=== PATIENT | male | born 1955 | race Caucasian/White ===

== ENCOUNTER 2021-07-05 08:54 | Inpatient (IN) | payer MEDICARE, BC ==
[2021-07-05] MEDS ORDERED: Sodium Chloride 0.9% 2.5 ML Syringe FLUSH PRN (09:38)
[2021-07-05] MEDS ORDERED: Sodium Chloride 0.9% 10 ML Syringe FLUSH PRN (09:38)
[2021-07-05 09:58] LABS: BLOOD UREA NITROGEN,BUN 5 mg/dL (7.0-18.0); CARBON DIOXIDE,CO2 25.1 mmol/L (21.0-32.0); CHLORIDE,CL 103 mmol/L (98-107); GLUCOSE RANDOM 117 mg/dL (74-106); POTASSIUM,K 3.8 mmol/L (3.5-5.1); SODIUM,NA 142 mmol/L (136-148)
--- NOTE | 2021-07-05 10:03 | EDM.PDOC ---
ED HPI GENERAL MEDICAL PROBLEM - General Chief Complaint: General Stated Complaint: PC SENT PT FOR POSSIBLE INTRUSION ON RIGHT LEG Time Seen by Provider: 07/05/21 09:18 Source of Information: Reports: Patient - History of Present Illness INITIAL COMMENTS - FREE TEXT/NARRATIVE: Patient presents with sending in from primary care doctor's clinic for concern of discoloration of toes. Patient was seen yesterday had an arterial duplex and laboratory testing and was sent in for evaluation. Patient states that he noticed the discoloration of his toes and pain about 4 days ago. Patient did have an arterial femorofemoral bypass [address] [facility] but he does not recall the name of the surgeon. Patient denies any fevers. Patient has chronic unchanged diarrhea. No recent antibiotics although he had Bactrim started just yesterday. No respiratory symptoms. He is vaccinated from [place]. No urinary symptoms. Primary care doctor noted that the patient had a white blood cell count elevation. Leg Pain Score (Numeric/FACES): 2 - Related Data Allergies Allergy/AdvReac Type Severity Reaction Status Date / Time meperidine HCl [From Demerol] Allergy Cannot Verified 07/05/21 09:19 Remember Penicillins Allergy Cannot Verified 07/05/21 09:19 Remember Home Meds: Home Meds Hydrocodone/Acetaminophen [HYDROcodone-Acetaminophen 5-325 MG] 07/05/21 [History] Sulfamethoxazole/Trimethoprim [Sulfamethoxazole-Tmp Ds Tablet] 07/05/21 [History] Terbinafine HCl [Terbinafine] 07/05/21 [History] Past Medical History - Past Health History Medical/Surgical History: Denies Medical/Surgical History Social & Family History - Tobacco Use Tobacco Use Status *Q: Unknown Ever Used Tobacco Second Hand Smoke Exposure: No - Caffeine Use Caffeine Use: Reports: None - Recreational Drug Use Recreational Drug Use: No ED ROS GENERAL - Review of Systems Review Of Systems: See Below Musculoskeletal: Reports: Other (Hit his right anterior leg about 1 month ago still has scab and pain to this area) ED EXAM, GENERAL - Physical Exam Exam: See Below Free Text/Narrative:: CONSTITUTIONAL: well appearing in no acute distress SKIN: Warm, dry, and intact without rash HENT: Normocephalic, atraumatic, PULMONARY: clear to ausculation bilaterally. No rales, rhonchi, wheezing CARDIOVASCULAR: regular rate, No murmur, rubs, or gallops GASTROINTESTINAL: soft, nondistended, nontender NEUROLOGIC: normal speech, II-XII intact. light touch/5/5 power equal and symmetric in upper and lower extremities without deficit MUSCULOSKELETAL: Patient with dark discoloration to bilateral great toes and also the fifth little toe. It is difficult to palpate any dorsalis pedis pulse. The extremities are warm and cap refill less than 2 seconds. Sensorimotor function otherwise intact. Patient does have tenderness to the discolored right great toe. In addition the right pretibial region has 2 scabs with some surrounding erythema. There is more tenderness to the proximal scab. PSYCHIATRIC: normal mood and affect #1 Interpretation Time: 10:02 EKG Interpretation Comments: 74, normal sinus rhythm. Mild interventricular conduction delay. Minor J-point elevation in V2 only Course - Vital Signs Text/Narrative:: Patient has records that were sent in from yesterday with white count of 11.77. There is an ultrasound that shows atherosclerotic plaque noted within the distal abdominal aorta. Patient has a femorofemoral bypass from right to left common femoral artery which appears patent. Elevated velocity seen within the right distal superficial femoral artery measuring up to 206 cm/s. Monophasic waveforms seen throughout the bilateral lower extremities. Otherwise there is no elevation of velocities noted throughout the bilateral lower extremities 11:28 still awaiting vascular surgery input. Have contacted [facility], [facility], [facility]. All have no beds. Still awaiting vascular surgery call back for [facility]. CT obtained. Extensive plaque disease. [facility] vascular surgeon was in the OR and went back in a case before I could talk to him but at this point given the CT scan findings I feel that the patient will very likely need vascular surgery consultation. In the interim the patient has already been anticoagulated. 1:55pm still calling trying different hospitals for beds. No one has beds. I have also tried L to [place] and [facility] and [facility]. [facility] "has bed"; bed will be 6 hours if accepted. Face sheet faxed and process started. 2:54 [facility] called again. no beds and no list for patient to be put on; [facility] still no bed. no list to be put on. 3:06. Spoke to [facility] at [facility]. Will review images. concurs with heparin. No bed to accept logistically but he is very willing, able and wanting to accept the patient. 3:15pm Called sister > no answer 3:18. [facility] called and a bed has opened up awaiting for images to get to [facility]. I have called mulitple times to see if they arrived. CT also called and they are pushing the images. 4:12pm. Vascular surgeon at [facility] contacted. States this is a long trip to get to [facility] and they may not even do a procedure. He states he is not saying no, however, he is hesitant to accept. 4:16pm calling back [facility], asking to speak to vascular surgery without images since pt will need to be in facility where vascular surgery is available (previously he said vascular surgery likes to see images first). However, since it is taking a long time with images he will connect me. 4:22pm [facility] (transfer center) states vascular surgery ([facility]) still requiring images prior to discussing. I expressed my concern for possible loss of bed. [facility] states he will relay that to vascular surgery. 5:15pm . Our CT states images sent. [facility] states that their IT states there is an intermediate windows server architect that is not allowing the images to cross. I asked if I could scroll video the images and send deidentified text with patient consent. States vascular now in an urgent surgery and not available to discuss. [facility] states they are holding the bed anticipating accepting the patient and he will continue to work with IT in regard to images and then [place] back with vascular surgery. 6:45. Spoke with vascular surgery, , at [facility]. He was to review the images. He states the grafts and in vessels are patent with good runoff. He acknowledges the clot burden in the infrarenal aorta. He states that he would not jump to any intervention immediately but would try anticoagulation. He recommends admission here with heparinization for a couple of days and then Eliquis as an outpatient. He states he is available to follow- up with the patient next week as needed. Patient will be admitted for systemic anticoagulation and serial checks. Symptoms did start approx 4 days ago and there has been no marked compensation here during his extended ED course. During inpatient admission patient could also be considered for echocardiography to ensure that there is no intracardiac clot burden. LATASHA Campbell 7pm Last Recorded V/S: Last Vital Signs Temp 36.8 C 07/05/21 09:16 Pulse 91 07/05/21 18:35 Resp 18 07/05/21 18:35 BP 151/85 H 07/05/21 18:35 Pulse Ox 96 07/05/21 18:35 - Orders/Labs/Meds Orders: Active Orders 24 hr Category Date Time Status Admission Status [Patient Status] [ADT] Stat ADT 07/05/21 18:48 Ordered Cardiac Monitoring [RC] . DIRECTED Care 07/05/21 09:38 Active Cardiac Monitoring [RC] . DIRECTED Care 07/05/21 18:48 Ordered CULTURE BLOOD [BC] Stat Lab 07/05/21 10:00 Received CULTURE BLOOD [BC] Stat Lab 07/05/21 10:10 Received aPTT [PTT,PARTIAL THROMBOPLSTIN TIME] [COAG] Q6H Lab 07/05/21 23:30 Ordered aPTT [PTT,PARTIAL THROMBOPLSTIN TIME] [COAG] Q6H Lab 07/06/21 05:30 Ordered aPTT [PTT,PARTIAL THROMBOPLSTIN TIME] [COAG] Q6H Lab 07/06/21 11:30 Ordered aPTT [PTT,PARTIAL THROMBOPLSTIN TIME] [COAG] Q6H Lab 07/06/21 17:30 Ordered aPTT [PTT,PARTIAL THROMBOPLSTIN TIME] [COAG] Q6H Lab 07/06/21 23:30 Ordered Heparin Sodium/0.45% NaCl [Heparin 25,000 Units in 1/2 Med 07/05/21 10:30 Active NS 500 ML] 500 ml IV TITRATE Sodium Chloride 0.9% [Saline Flush] Med 07/05/21 09:38 Active 10 ml FLUSH ASDIRECTED PRN Sodium Chloride 0.9% [Saline Flush] Med 07/05/21 09:38 Active 2.5 ml FLUSH ASDIRECTED PRN Blood Culture x2 Reflex Set [OM.PC] Stat Oth 07/05/21 09:39 Ordered Saline Lock Insert [OM.PC] Stat Oth 07/05/21 09:38 Ordered Medication Orders Heparin Sodium/Sodium Chloride (Heparin 25,000 Units In 1/2 Ns 500 Ml) 500 mls @ 26.127 mls/hr IV TITRATE MELISSA; Protocol Last Admin: 07/05/21 11:26 Dose: 18 units/kg/hr, 26.127 mls/hr Documented by: LINDSEY Cosigned by: WALLY Sodium Chloride (Sodium Chloride 0.9% 10 Ml Syringe) 10 ml FLUSH ASDIRECTED PRN PRN Reason: Keep Vein Open Last Admin: 07/05/21 11:25 Dose: 10 ml Documented by: LINDSEY Sodium Chloride (Sodium Chloride 0.9% 2.5 Ml Syringe) 2.5 ml FLUSH ASDIRECTED PRN PRN Reason: Keep Vein Open Last Admin: 07/05/21 11:26 Dose: 2.5 ml Documented by: LINDSEY Labs: Laboratory Tests 07/05/21 07/05/21 07/05/21 Range/Units 09:14 09:14 09:14 WBC 7.25 (4.0-11.0) K/uL RBC 5.39 (4.50-5.90) M/uL Hgb 18.8 H (13.0-17.0) g/dL Hct 52.1 H (38.0-50.0) % MCV 96.7 (80.0-98.0) fL MCH 34.9 H (27.0-32.0) pg MCHC 36.1 (31.0-37.0) g/dL RDW Std Deviation 53.1 (28.0-62.0) fl RDW Coeff of Guillermina 15 (11.0-15.0) % Plt Count 192 (150-400) K/uL MPV 12.30 H (7.40-12.00) fL Neut % (Auto) 52.3 (48.0-80.0) % Lymph % (Auto) 34.3 (16.0-40.0) % [place] % (Auto) 10.9 (0.0-15.0) % Eos % (Auto) 2.2 (0.0-7.0) % Baso % (Auto) 0.3 (0.0-1.5) % Neut # (Auto) 3.8 (1.4-5.7) K/uL Lymph # (Auto) 2.5 H (0.6-2.4) K/uL [place] # (Auto) 0.8 (0.0-0.8) K/uL Eos # (Auto) 0.2 (0.0-0.7) K/uL Baso # (Auto) 0.0 (0.0-0.1) K/uL Nucleated RBC % 0.0 /100WBC Nucleated RBCs # 0 K/uL INR 1.21 APTT (18.6-31.3) SEC Sodium 142 (136-148) mmol/L Potassium 3.8 (3.5-5.1) mmol/L Chloride 103 (98-107) mmol/L Carbon Dioxide 25.1 (21.0-32.0) mmol/L BUN 5 L (7.0-18.0) mg/dL Creatinine 1.0 (0.8-1.3) mg/dL Est Cr Clr Drug Dosing 68.40 mL/min Estimated GFR (MDRD) > 60.0 ml/min Glucose 117 H (74-106) mg/dL Lactic Acid (0.4-2.0) mmol/L Calcium 8.8 (8.5-10.1) mg/dL Total Bilirubin 0.3 (0.2-1.0) mg/dL AST 28 (15-37) IU/L ALT 32 (14-63) IU/L Alkaline Phosphatase 89 (46-116) U/L C-Reactive Protein 0.50 (0.00-0.90) mg/dL Total Protein 6.9 (6.4-8.2) g/dL Albumin 3.7 (3.4-5.0) g/dL Globulin 3.2 (2.6-4.0) g/dL Albumin/Globulin Ratio 1.2 (0.9-1.6) Urine Color Urine Appearance Urine pH (5.0-8.0) Ur Specific [place] (1.001-1.035) Urine Protein (NEGATIVE) mg/dL Urine Glucose (UA) (NEGATIVE) mg/dL Urine Ketones (NEGATIVE) mg/dL Urine Occult Blood (NEGATIVE) Urine Nitrite (NEGATIVE) Urine Bilirubin (NEGATIVE) Urine Urobilinogen (<2.0) EU/dL Ur Leukocyte Esterase (NEGATIVE) Urine RBC (0-2/HPF) Urine WBC (0-5/HPF) Ur Epithelial Cells (NONE-FEW) Urine Bacteria (NEGATIVE) 07/05/21 07/05/21 07/05/21 Range/Units 09:14 10:10 13:00 WBC (4.0-11.0) K/uL RBC (4.50-5.90) M/uL Hgb (13.0-17.0) g/dL Hct (38.0-50.0) % MCV (80.0-98.0) fL MCH (27.0-32.0) pg MCHC (31.0-37.0) g/dL RDW Std Deviation (28.0-62.0) fl RDW Coeff of Guillermina (11.0-15.0) % Plt Count (150-400) K/uL MPV (7.40-12.00) fL Neut % (Auto) (48.0-80.0) % Lymph % (Auto) (16.0-40.0) % [place] % (Auto) (0.0-15.0) % Eos % (Auto) (0.0-7.0) % Baso % (Auto) (0.0-1.5) % Neut # (Auto) (1.4-5.7) K/uL Lymph # (Auto) (0.6-2.4) K/uL [place] # (Auto) (0.0-0.8) K/uL Eos # (Auto) (0.0-0.7) K/uL Baso # (Auto) (0.0-0.1) K/uL Nucleated RBC % /100WBC Nucleated RBCs # K/uL INR APTT 32.5 H (18.6-31.3) SEC Sodium (136-148) mmol/L Potassium (3.5-5.1) mmol/L Chloride (98-107) mmol/L Carbon Dioxide (21.0-32.0) mmol/L BUN (7.0-18.0) mg/dL Creatinine (0.8-1.3) mg/dL Est Cr Clr Drug Dosing mL/min Estimated GFR (MDRD) ml/min Glucose (74-106) mg/dL Lactic Acid 2.9 H* (0.4-2.0) mmol/L Calcium (8.5-10.1) mg/dL Total Bilirubin (0.2-1.0) mg/dL AST (15-37) IU/L ALT (14-63) IU/L Alkaline Phosphatase (46-116) U/L C-Reactive Protein (0.00-0.90) mg/dL Total Protein (6.4-8.2) g/dL Albumin (3.4-5.0) g/dL Globulin (2.6-4.0) g/dL Albumin/Globulin Ratio (0.9-1.6) Urine Color YELLOW Urine Appearance CLEAR Urine pH 6.5 (5.0-8.0) Ur Specific [place] <= 1.005 (1.001-1.035) Urine Protein NEGATIVE (NEGATIVE) mg/dL Urine Glucose (UA) NEGATIVE (NEGATIVE) mg/dL Urine Ketones NEGATIVE (NEGATIVE) mg/dL Urine Occult Blood NEGATIVE (NEGATIVE) Urine Nitrite NEGATIVE (NEGATIVE) Urine Bilirubin NEGATIVE (NEGATIVE) Urine Urobilinogen 0.2 (<2.0) EU/dL Ur Leukocyte Esterase NEGATIVE (NEGATIVE) Urine RBC 0-1 (0-2/HPF) Urine WBC 0-1 (0-5/HPF) Ur Epithelial Cells RARE (NONE-FEW) Urine Bacteria RARE (NEGATIVE) 07/05/21 07/05/21 Range/Units 15:05 17:47 WBC (4.0-11.0) K/uL RBC (4.50-5.90) M/uL Hgb (13.0-17.0) g/dL Hct (38.0-50.0) % MCV (80.0-98.0) fL MCH (27.0-32.0) pg MCHC (31.0-37.0) g/dL RDW Std Deviation (28.0-62.0) fl RDW Coeff of Guillermina (11.0-15.0) % Plt Count (150-400) K/uL MPV (7.40-12.00) fL Neut % (Auto) (48.0-80.0) % Lymph % (Auto) (16.0-40.0) % [place] % (Auto) (0.0-15.0) % Eos % (Auto) (0.0-7.0) % Baso % (Auto) (0.0-1.5) % Neut # (Auto) (1.4-5.7) K/uL Lymph # (Auto) (0.6-2.4) K/uL [place] # (Auto) (0.0-0.8) K/uL Eos # (Auto) (0.0-0.7) K/uL Baso # (Auto) (0.0-0.1) K/uL Nucleated RBC % /100WBC Nucleated RBCs # K/uL INR APTT 111.5 H (18.6-31.3) SEC Sodium (136-148) mmol/L Potassium (3.5-5.1) mmol/L Chloride (98-107) mmol/L Carbon Dioxide (21.0-32.0) mmol/L BUN (7.0-18.0) mg/dL Creatinine (0.8-1.3) mg/dL Est Cr Clr Drug Dosing mL/min Estimated GFR (MDRD) ml/min Glucose (74-106) mg/dL Lactic Acid 1.4 (0.4-2.0) mmol/L Calcium (8.5-10.1) mg/dL Total Bilirubin (0.2-1.0) mg/dL AST (15-37) IU/L ALT (14-63) IU/L Alkaline Phosphatase (46-116) U/L C-Reactive Protein (0.00-0.90) mg/dL Total Protein (6.4-8.2) g/dL Albumin (3.4-5.0) g/dL Globulin (2.6-4.0) g/dL Albumin/Globulin Ratio (0.9-1.6) Urine Color Urine Appearance Urine pH (5.0-8.0) Ur Specific [place] (1.001-1.035) Urine Protein (NEGATIVE) mg/dL Urine Glucose (UA) (NEGATIVE) mg/dL Urine Ketones (NEGATIVE) mg/dL Urine Occult Blood (NEGATIVE) Urine Nitrite (NEGATIVE) Urine Bilirubin (NEGATIVE) Urine Urobilinogen (<2.0) EU/dL Ur Leukocyte Esterase (NEGATIVE) Urine RBC (0-2/HPF) Urine WBC (0-5/HPF) Ur Epithelial Cells (NONE-FEW) Urine Bacteria (NEGATIVE) Meds: Medications Generic Name Dose Route Start Last Admin Trade Name Freq PRN Reason Stop Dose Admin Heparin Sodium/Sodium Chloride 500 mls @ 26.127 mls/hr 07/05/21 10:30 07/05/21 11:26 Heparin 25,000 Units In 1/2 Ns 500 Ml IV 18 units/kg/hr TITRATE MELISSA 26.127 mls/hr Administration Protocol 18 UNITS/KG/HR Sodium Chloride 10 ml 07/05/21 09:38 07/05/21 11:25 Sodium Chloride 0.9% 10 Ml Syringe FLUSH 10 ml ASDIRECTED PRN Administration Keep Vein Open Sodium Chloride 2.5 ml 07/05/21 09:38 07/05/21 11:26 Sodium Chloride 0.9% 2.5 Ml Syringe FLUSH 2.5 ml ASDIRECTED PRN Administration Keep Vein Open Discontinued Medications Generic Name Dose Route Start Last Admin Trade Name Freq PRN Reason Stop Dose Admin Fentanyl 25 mcg 07/05/21 15:07 07/05/21 15:27 Fentanyl 50 Mcg/Ml Sdv IVPUSH 07/05/21 15:08 25 mcg ONETIME ONE Administration Heparin Sodium (Porcine) 4,000 units 07/05/21 10:29 07/05/21 11:34 Heparin Sodium 5,000 Units/Ml Vial IVPUSH 07/05/21 10:30 Not Given ONETIME ONE Heparin Sodium (Porcine) 5,000 units 07/05/21 11:25 07/05/21 11:26 Heparin Sodium 5,000 Units/Ml Vial IVPUSH 07/05/21 11:26 5,000 units ONETIME ONE Administration Cefepime HCl 2 gm/ Premix 50 mls @ 100 mls/hr 07/05/21 12:06 07/05/21 16:08 IV 07/05/21 12:35 100 mls/hr ONETIME ONE Administration Vancomycin HCl 1.5 gm/ Premix 300 mls @ 200 mls/hr 07/05/21 12:06 07/05/21 13:49 IV 07/05/21 13:35 200 mls/hr ONETIME ONE Administration Lactated Ringer's 1,000 mls @ 999 mls/hr 07/05/21 12:11 07/05/21 15:56 Ringers, Lactated IV 07/05/21 13:11 999 mls/hr .BOLUS ONE Administration Iopamidol 120 ml 07/05/21 12:13 07/05/21 12:13 Iopamidol 755 Mg/Ml 500 Ml Multipack Bottle IVPUSH 07/05/21 12:14 120 ml ONETIME STA Administration Departure - Departure Time of Disposition: 18:55 Disposition: Admitted As Inpatient 64 Condition: Good Clinical Impression: Thrombus of aorta - Discharge Information Referrals: Deepika Suggs PA-C [Primary Care Provider] - Forms: ED Department Discharge Sepsis Event Note (ED) - Evaluation Sepsis Screening Result: No Definite Risk - Focused Exam Vital Signs: Vital Signs Temp Pulse Resp BP Pulse Ox 07/05/21 18:35 91 18 151/85 H 96 07/05/21 17:48 85 19 138/66 93 L 07/05/21 16:27 84 18 140/61 94 L 07/05/21 15:23 82 19 176/90 H 94 L 07/05/21 14:46 86 18 135/76 94 L 07/05/21 13:15 74 19 145/56 H 95 07/05/21 12:32 79 17 157/73 H 92 L 07/05/21 11:09 75 16 133/66 97 07/05/21 10:39 73 17 135/64 97 07/05/21 09:16 36.8 C 80 20 110/65 97 - My Orders Last 24 Hours: My Active Orders 07/05/21 09:38 Cardiac Monitoring [RC] . DIRECTED Sodium Chloride 0.9% [Saline Flush] 10 ml FLUSH ASDIRECTED PRN Sodium Chloride 0.9% [Saline Flush] 2.5 ml FLUSH ASDIRECTED PRN Saline Lock Insert [OM.PC] Stat 07/05/21 09:39 Blood Culture x2 Reflex Set [OM.PC] Stat 07/05/21 10:00 CULTURE BLOOD [BC] Stat 07/05/21 10:10 CULTURE BLOOD [BC] Stat 07/05/21 18:48 Admission Status [Patient Status] [ADT] Stat Cardiac Monitoring [RC] . DIRECTED 07/05/21 23:30 aPTT [PTT,PARTIAL THROMBOPLSTIN TIME] [COAG] Q6H 07/06/21 05:30 aPTT [PTT,PARTIAL THROMBOPLSTIN TIME] [COAG] Q6H 07/06/21 11:30 aPTT [PTT,PARTIAL THROMBOPLSTIN TIME] [COAG] Q6H 07/06/21 17:30 aPTT [PTT,PARTIAL THROMBOPLSTIN TIME] [COAG] Q6H 07/06/21 23:30 aPTT [PTT,PARTIAL THROMBOPLSTIN TIME] [COAG] Q6H - Assessment/Plan Last 24 Hours: My Active Orders 07/05/21 09:38 Cardiac Monitoring [RC] . DIRECTED Sodium Chloride 0.9% [Saline Flush] 10 ml FLUSH ASDIRECTED PRN Sodium Chloride 0.9% [Saline Flush] 2.5 ml FLUSH ASDIRECTED PRN Saline Lock Insert [OM.PC] Stat 07/05/21 09:39 Blood Culture x2 Reflex Set [OM.PC] Stat 07/05/21 10:00 CULTURE BLOOD [BC] Stat 07/05/21 10:10 CULTURE BLOOD [BC] Stat 07/05/21 18:48 Admission Status [Patient Status] [ADT] Stat Cardiac Monitoring [RC] . DIRECTED 07/05/21 23:30 aPTT [PTT,PARTIAL THROMBOPLSTIN TIME] [COAG] Q6H 07/06/21 05:30 aPTT [PTT,PARTIAL THROMBOPLSTIN TIME] [COAG] Q6H 07/06/21 11:30 aPTT [PTT,PARTIAL THROMBOPLSTIN TIME] [COAG] Q6H 07/06/21 17:30 aPTT [PTT,PARTIAL THROMBOPLSTIN TIME] [COAG] Q6H 07/06/21 23:30 aPTT [PTT,PARTIAL THROMBOPLSTIN TIME] [COAG] Q6H
[2021-07-05] MEDS ORDERED: Heparin Sodium 5,000 Units/ML Vial IVPUSH ONE ×2 (10:29→11:25)
[2021-07-05] MEDS ORDERED: Heparin Sodium/0.45% NaCl 500 ML IV SCH ×2 (10:30→21:45)
--- NOTE | 2021-07-05 11:05 | CR ---
INDICATION: Elevated white blood cell count TECHNIQUE: Chest 1 view Comparison: 11/27/2015 Findings: Cardiomediastinal silhouette is unremarkable. No focal lung consolidation, pleural effusion or pneumothorax. Degenerative changes in the spine are again noted. Impression: No acute cardiopulmonary abnormality. Dictated by Demetris Guzman MD @ 07/05/2021 11:04:[address] Demetris Guzman @ Jul 05 2021 11:04AM
--- NOTE | 2021-07-05 11:21 | CR ---
Indication: Elevated white blood cell count Comparison: None available. Technique: AP and lateral views right tibia and fibula were obtained Findings: There is no displaced fracture or dislocation. Degenerative changes of the tibiofemoral joint as well as medial compartment arthroplasty are appreciated. There is mild superficial soft tissue swelling. Impression: Mild superficial soft tissue swelling without evidence of acute osseous abnormality. Dictated by Vicente Dowd MD @ 07/05/2021 11:20:[address] Vicente Dowd @ Jul 05 2021 11:20AM
--- NOTE | 2021-07-05 11:57 | CR ---
INDICATION: Pain. COMPARISON: None. TECHNIQUE: Right foot 2 views, left foot 2 views. FINDINGS: No acute fracture. Alignment is within normal limits. Joint spaces are maintained. Soft tissues are unremarkable. Left plantar calcaneal spur. IMPRESSION: No acute osseous abnormality. Dictated by Demetris Guzman MD @ 07/05/2021 11:55:[address] Demetris Guzman @ Jul 05 2021 11:55AM
[2021-07-05] MEDS ORDERED: VANCOmycin 1.5 GM/300 ML 1.5 GM in Premix Bag 1 BAG IV ONE (12:06)
[2021-07-05] MEDS ORDERED: Cefepime 2 GM in Premix Bag 1 BAG IV ONE (12:06)
[2021-07-05] MEDS ORDERED: Lactated Ringers 1,000 ML IV ONE (12:11)
[2021-07-05] MEDS ORDERED: Iopamidol 755 MG/ML 500 ML Multipack Bottle IVPUSH STA (12:13)
--- NOTE | 2021-07-05 13:34 | CT ---
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 TECHNIQUE: CT angiography of the abdomen, pelvis, and bilateral lower extremities was performed with intravenous contrast. No enteric contrast was administered and therefore the study has decreased sensitivity for detection of bowel pathology. 3D and/or MIP angiographic reconstructions were performed on a separate independent workstation with concurrent supervision of the image post processing in order to further delineate the angiographic anatomy for accurate interpretation. Contrast: 120 mL of Isovue 370 intravenous contrast was injected uneventfully prior to image acquisition. Radiation Dose Estimate (Total Exam DLP): 1089.8 mGy-cm. COMPARISON: None available FINDINGS: CT Angiography Findings: Abdominal aorta: Diffuse extensive atherosclerotic disease most pronounced in the infrarenal abdominal aorta with moderate amount of atheromatous plaque and infrarenal aortic ectasia measuring up to 25 mm. No dissection. Celiac axis: Patent. Superior mesenteric artery: Patent. Inferior mesenteric artery: Occluded at its origin with proximal reconstitution. LEFT Renal: Patent. RIGHT Renal: Patent. RIGHT lower extremity: Common iliac artery: Moderate ostial stenosis. Focal moderate distal stenosis due to atheromatous plaque. Internal iliac artery: High-grade ostial stenosis. External iliac artery: Patent stent. Common femoral artery: Patent. Patent right to left femoral-femoral bypass. Deep femoral artery: Patent. Superficial femoral artery: Focal moderate proximal stenosis. Diffusely diseased with multifocal [id number] stenoses. Popliteal artery: Limited evaluation due to streak artifact from knee prosthesis. Otherwise patent. Anterior tibial artery: Patent. Peroneal artery: Patent. Posterior tibial artery: Patent. LEFT lower extremity: Common iliac artery: Diffusely diseased with multifocal moderate stenoses. Internal iliac artery: High-grade ostial stenosis. External iliac artery: Occluded. Common femoral artery: Patent. High-grade stenosis at the femoral-femoral distal anastomosis. Deep femoral artery: Patent. Superficial femoral artery: Focal moderate proximal stenosis. Scattered disease throughout. Popliteal artery: Patent. Anterior tibial artery: Patent. Peroneal artery: Patent. Posterior tibial artery: Patent. Visceral Findings: Lower Chest: Lung Bases: No focal airspace opacities or pleural effusions. Heart/Pericardium: Visualized heart normal in size. Coronary artery atherosclerotic calcifications. Abdomen/ Pelvis: Liver: 5 mm hypoattenuated lesions in the left hepatic lobe, too small to accurately characterize but most consistent with benign entity such as cyst.. Gallbladder: Unremarkable. Spleen: Unremarkable. Adrenal glands: Unremarkable. Kidneys: Unremarkable. Pancreas: Unremarkable. Lymph nodes: No retroperitoneal, mesenteric, inguinal, or pelvic adenopathy by CT criteria. Bowel: No bowel obstruction. Colonic diverticulosis, no evidence for diverticulitis. Urinary bladder: Mildly distended but otherwise unremarkable. Reproductive structures: Unremarkable for patient`s age. No abdominal/pelvis ascites or free intraperitoneal air. Musculoskeletal: Status post right knee medial compartment arthroplasty. Visualized osseous structures demonstrate diffuse degenerative changes. IMPRESSION: 1. Diffuse extensive infrarenal abdominal aortic atherosclerotic disease with moderate amount of atheromatous plaque in addition to infrarenal ectasia measuring up to 25 mm. 2. RIGHT lower extremity: -Focal moderate common iliac artery ostial and distal stenoses. -High-grade Internal iliac artery ostial stenosis. -Patent external iliac artery stent. -Patent right to left femoral-femoral bypass. -Focal moderate proximal SFA stenosis. -Three vessel runoff is preserved. 3. LEFT lower extremity: -[place] external iliac artery is occluded. -Patent femoral-femoral bypass with high-grade stenosis at the distal left femoral artery anastomosis -Focal moderate proximal SFA stenosis. -Three vessel runoff is preserved. Please note that all CT scans at this facility use dose modulation, iterative reconstruction, and/or weight-based dosing when appropriate to reduce radiation dose to as low as reasonably achievable. Dictated by Jordi Art MD @ 07/05/2021 1:32:[address] Jordi Art @ Jul 05 2021 1:32PM
[2021-07-05] MEDS ORDERED: fentaNYL 50 MCG/ML SDV IVPUSH ONE (15:07)
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
[2021-07-05 19:31] LABS: HEMOGLOBIN A1C 6.3 %
[2021-07-05] MEDS ORDERED: Albuterol/Ipratropium 3.0-0.5 MG/3 ML Neb Soln NEB PRN (20:28)
[2021-07-05] MEDS ORDERED: Acetaminophen 325 MG Tab PO PRN (20:30)
[2021-07-05] MEDS ORDERED: Cefepime 2 GM in Premix Bag 1 BAG IV SCH (20:30)
[2021-07-05] MEDS: Pantoprazole 40 MG in Sodium Chloride 0.9% 10 ML IV SCH (22:38)
[2021-07-06] MEDS ORDERED: Heparin Sodium 5,000 Units/ML Vial IVPUSH ONE ×2 (00:31→06:34)
[2021-07-06] MEDS: Morphine 2 MG/ML SYRINGE IVPUSH PRN ×4 (02:38→19:39)
[2021-07-06] MEDS: Vancomycin 125 MG Cap PO SCH ×4 (06:03→23:51)
[2021-07-06 06:19] LABS: BLOOD UREA NITROGEN,BUN 6 mg/dL (7.0-18.0); CARBON DIOXIDE,CO2 25.5 mmol/L (21.0-32.0); CHLORIDE,CL 104 mmol/L (98-107); GLUCOSE RANDOM 82 mg/dL (74-106); POTASSIUM,K 3.4 mmol/L (3.5-5.1); SODIUM,NA 140 mmol/L (136-148)
[2021-07-06] MEDS ORDERED: Potassium Chloride 20 MEQ Tab.ER PO ONE (08:11)
[2021-07-06] MEDS ORDERED: atorvaSTATin 40 MG Tab PO SCH ×2 (09:00→21:00)
[2021-07-06] MEDS: Cefepime 2 GM in Premix Bag 1 BAG IV SCH ×2 (09:01→21:00)
--- NOTE | 2021-07-06 10:31 | PCM.PN ---
- General Info Date of Service: 07/06/21 Subjective Update: Patient states moderate to severe pain of the right great toe with light touch. Denies decreased sensation, decreased strength of the lower extremities. Denies fever, chills, abdominal pain. - Review of Systems General: Denies: Fever, Chills Pulmonary: Denies: Shortness of Breath, Cough Cardiovascular: Denies: Chest Pain Gastrointestinal: Denies: Abdominal Pain, Decreased Appetite, Nausea Genitourinary: Denies: Dysuria Skin: Reports: Cyanosis (right great toe, second/third toes. Left great toe, second toe) Neurological: Denies: Confusion, Dizziness, Headache Psychiatric: Denies: Confusion - Patient Data Vitals - Most Recent: Last Vital Signs Temp 97.5 F 07/06/21 08:00 Pulse 58 L 07/06/21 08:00 Resp 20 07/06/21 08:00 BP 127/64 07/06/21 08:00 Pulse Ox 98 07/06/21 08:00 Weight - Most Recent: 161 lb 1.6 oz I&O - Last 24 Hours: Intake & Output 07/05/21 07/06/21 07/06/21 22:59 06:59 14:59 Intake Total 450 Output Total 450 Balance 0 Lab Results Last 24 Hours: Laboratory Results - last 24 hr 07/05/21 07/05/21 07/05/21 Range/Units 09:14 09:16 09:16 WBC (4.0-11.0) K/uL RBC (4.50-5.90) M/uL Hgb (13.0-17.0) g/dL Hct (38.0-50.0) % MCV (80.0-98.0) fL MCH (27.0-32.0) pg MCHC (31.0-37.0) g/dL RDW Std Deviation (28.0-62.0) fl RDW Coeff of Guillermina (11.0-15.0) % Plt Count (150-400) K/uL MPV (7.40-12.00) fL Neut % (Auto) (48.0-80.0) % Lymph % (Auto) (16.0-40.0) % [place] % (Auto) (0.0-15.0) % Eos % (Auto) (0.0-7.0) % Baso % (Auto) (0.0-1.5) % Neut # (Auto) (1.4-5.7) K/uL Lymph # (Auto) (0.6-2.4) K/uL [place] # (Auto) (0.0-0.8) K/uL Eos # (Auto) (0.0-0.7) K/uL Baso # (Auto) (0.0-0.1) K/uL Nucleated RBC % /100WBC Nucleated RBCs # K/uL APTT 32.5 H (18.6-31.3) SEC Sodium (136-148) mmol/L Potassium (3.5-5.1) mmol/L Chloride (98-107) mmol/L Carbon Dioxide (21.0-32.0) mmol/L BUN (7.0-18.0) mg/dL Creatinine (0.8-1.3) mg/dL Est Cr Clr Drug Dosing mL/min Estimated GFR (MDRD) ml/min Glucose (74-106) mg/dL Hemoglobin A1c 6.3 H (4.5 - 6.2) % Lactic Acid (0.4-2.0) mmol/L Calcium (8.5-10.1) mg/dL Magnesium (1.8-2.4) mg/dL Total Bilirubin (0.2-1.0) mg/dL AST (15-37) IU/L ALT (14-63) IU/L Alkaline Phosphatase (46-116) U/L Total Protein (6.4-8.2) g/dL Albumin (3.4-5.0) g/dL Globulin (2.6-4.0) g/dL Albumin/Globulin Ratio (0.9-1.6) Triglycerides 215 H (0-200) mg/dL Cholesterol 163 (50-200) mg/dL LDL Cholesterol, Calc 88 (60-180) mg/dL VLDL Cholesterol 43 (5-55) mg/dL HDL Cholesterol 32 L (40-60) mg/dL Cholesterol/HDL Ratio 5.1 (3.3-6.0) TSH, Ultra Sensitive 1.75 (0.36-3.74) uIU/mL Urine Color Urine Appearance Urine pH (5.0-8.0) Ur Specific [place] (1.001-1.035) Urine Protein (NEGATIVE) mg/dL Urine Glucose (UA) (NEGATIVE) mg/dL Urine Ketones (NEGATIVE) mg/dL Urine Occult Blood (NEGATIVE) Urine Nitrite (NEGATIVE) Urine Bilirubin (NEGATIVE) Urine Urobilinogen (<2.0) EU/dL Ur Leukocyte Esterase (NEGATIVE) Urine RBC (0-2/HPF) Urine WBC (0-5/HPF) Ur Epithelial Cells (NONE-FEW) Urine Bacteria (NEGATIVE) SARS-CoV-2 RNA (LISA) (NEGATIVE) 07/05/21 07/05/21 07/05/21 Range/Units 10:10 13:00 15:05 WBC (4.0-11.0) K/uL RBC (4.50-5.90) M/uL Hgb (13.0-17.0) g/dL Hct (38.0-50.0) % MCV (80.0-98.0) fL MCH (27.0-32.0) pg MCHC (31.0-37.0) g/dL RDW Std Deviation (28.0-62.0) fl RDW Coeff of Guillermina (11.0-15.0) % Plt Count (150-400) K/uL MPV (7.40-12.00) fL Neut % (Auto) (48.0-80.0) % Lymph % (Auto) (16.0-40.0) % [place] % (Auto) (0.0-15.0) % Eos % (Auto) (0.0-7.0) % Baso % (Auto) (0.0-1.5) % Neut # (Auto) (1.4-5.7) K/uL Lymph # (Auto) (0.6-2.4) K/uL [place] # (Auto) (0.0-0.8) K/uL Eos # (Auto) (0.0-0.7) K/uL Baso # (Auto) (0.0-0.1) K/uL Nucleated RBC % /100WBC Nucleated RBCs # K/uL APTT (18.6-31.3) SEC Sodium (136-148) mmol/L Potassium (3.5-5.1) mmol/L Chloride (98-107) mmol/L Carbon Dioxide (21.0-32.0) mmol/L BUN (7.0-18.0) mg/dL Creatinine (0.8-1.3) mg/dL Est Cr Clr Drug Dosing mL/min Estimated GFR (MDRD) ml/min Glucose (74-106) mg/dL Hemoglobin A1c (4.5 - 6.2) % Lactic Acid 2.9 H* 1.4 (0.4-2.0) mmol/L Calcium (8.5-10.1) mg/dL Magnesium (1.8-2.4) mg/dL Total Bilirubin (0.2-1.0) mg/dL AST (15-37) IU/L ALT (14-63) IU/L Alkaline Phosphatase (46-116) U/L Total Protein (6.4-8.2) g/dL Albumin (3.4-5.0) g/dL Globulin (2.6-4.0) g/dL Albumin/Globulin Ratio (0.9-1.6) Triglycerides (0-200) mg/dL Cholesterol (50-200) mg/dL LDL Cholesterol, Calc (60-180) mg/dL VLDL Cholesterol (5-55) mg/dL HDL Cholesterol (40-60) mg/dL Cholesterol/HDL Ratio (3.3-6.0) TSH, Ultra Sensitive (0.36-3.74) uIU/mL Urine Color YELLOW Urine Appearance CLEAR Urine pH 6.5 (5.0-8.0) Ur Specific [place] <= 1.005 (1.001-1.035) Urine Protein NEGATIVE (NEGATIVE) mg/dL Urine Glucose (UA) NEGATIVE (NEGATIVE) mg/dL Urine Ketones NEGATIVE (NEGATIVE) mg/dL Urine Occult Blood NEGATIVE (NEGATIVE) Urine Nitrite NEGATIVE (NEGATIVE) Urine Bilirubin NEGATIVE (NEGATIVE) Urine Urobilinogen 0.2 (<2.0) EU/dL Ur Leukocyte Esterase NEGATIVE (NEGATIVE) Urine RBC 0-1 (0-2/HPF) Urine WBC 0-1 (0-5/HPF) Ur Epithelial Cells RARE (NONE-FEW) Urine Bacteria RARE (NEGATIVE) SARS-CoV-2 RNA (LISA) (NEGATIVE) 07/05/21 07/05/21 07/05/21 Range/Units 17:47 19:10 23:39 WBC (4.0-11.0) K/uL RBC (4.50-5.90) M/uL Hgb (13.0-17.0) g/dL Hct (38.0-50.0) % MCV (80.0-98.0) fL MCH (27.0-32.0) pg MCHC (31.0-37.0) g/dL RDW Std Deviation (28.0-62.0) fl RDW Coeff of Guillermina (11.0-15.0) % Plt Count (150-400) K/uL MPV (7.40-12.00) fL Neut % (Auto) (48.0-80.0) % Lymph % (Auto) (16.0-40.0) % [place] % (Auto) (0.0-15.0) % Eos % (Auto) (0.0-7.0) % Baso % (Auto) (0.0-1.5) % Neut # (Auto) (1.4-5.7) K/uL Lymph # (Auto) (0.6-2.4) K/uL [place] # (Auto) (0.0-0.8) K/uL Eos # (Auto) (0.0-0.7) K/uL Baso # (Auto) (0.0-0.1) K/uL Nucleated RBC % /100WBC Nucleated RBCs # K/uL APTT 111.5 H 30.7 (18.6-31.3) SEC Sodium (136-148) mmol/L Potassium (3.5-5.1) mmol/L Chloride (98-107) mmol/L Carbon Dioxide (21.0-32.0) mmol/L BUN (7.0-18.0) mg/dL Creatinine (0.8-1.3) mg/dL Est Cr Clr Drug Dosing mL/min Estimated GFR (MDRD) ml/min Glucose (74-106) mg/dL Hemoglobin A1c (4.5 - 6.2) % Lactic Acid (0.4-2.0) mmol/L Calcium (8.5-10.1) mg/dL Magnesium (1.8-2.4) mg/dL Total Bilirubin (0.2-1.0) mg/dL AST (15-37) IU/L ALT (14-63) IU/L Alkaline Phosphatase (46-116) U/L Total Protein (6.4-8.2) g/dL Albumin (3.4-5.0) g/dL Globulin (2.6-4.0) g/dL Albumin/Globulin Ratio (0.9-1.6) Triglycerides (0-200) mg/dL Cholesterol (50-200) mg/dL LDL Cholesterol, Calc (60-180) mg/dL VLDL Cholesterol (5-55) mg/dL HDL Cholesterol (40-60) mg/dL Cholesterol/HDL Ratio (3.3-6.0) TSH, Ultra Sensitive (0.36-3.74) uIU/mL Urine Color Urine Appearance Urine pH (5.0-8.0) Ur Specific [place] (1.001-1.035) Urine Protein (NEGATIVE) mg/dL Urine Glucose (UA) (NEGATIVE) mg/dL Urine Ketones (NEGATIVE) mg/dL Urine Occult Blood (NEGATIVE) Urine Nitrite (NEGATIVE) Urine Bilirubin (NEGATIVE) Urine Urobilinogen (<2.0) EU/dL Ur Leukocyte Esterase (NEGATIVE) Urine RBC (0-2/HPF) Urine WBC (0-5/HPF) Ur Epithelial Cells (NONE-FEW) Urine Bacteria (NEGATIVE) SARS-CoV-2 RNA (LISA) NEGATIVE (NEGATIVE) 07/06/21 07/06/21 07/06/21 Range/Units 05:38 05:38 05:38 WBC 6.82 (4.0-11.0) K/uL RBC 5.04 (4.50-5.90) M/uL Hgb 16.9 (13.0-17.0) g/dL Hct 48.3 (38.0-50.0) % MCV 95.8 (80.0-98.0) fL MCH 33.5 H (27.0-32.0) pg MCHC 35.0 (31.0-37.0) g/dL RDW Std Deviation 53.2 (28.0-62.0) fl RDW Coeff of Guillermina 15 (11.0-15.0) % Plt Count 167 (150-400) K/uL MPV 11.70 (7.40-12.00) fL Neut % (Auto) 54.8 (48.0-80.0) % Lymph % (Auto) 32.1 (16.0-40.0) % [place] % (Auto) 10.7 (0.0-15.0) % Eos % (Auto) 2.1 (0.0-7.0) % Baso % (Auto) 0.3 (0.0-1.5) % Neut # (Auto) 3.7 (1.4-5.7) K/uL Lymph # (Auto) 2.2 (0.6-2.4) K/uL [place] # (Auto) 0.7 (0.0-0.8) K/uL Eos # (Auto) 0.1 (0.0-0.7) K/uL Baso # (Auto) 0.0 (0.0-0.1) K/uL Nucleated RBC % 0.0 /100WBC Nucleated RBCs # 0 K/uL APTT 46.6 H (18.6-31.3) SEC Sodium 140 (136-148) mmol/L Potassium 3.4 L (3.5-5.1) mmol/L Chloride 104 (98-107) mmol/L Carbon Dioxide 25.5 (21.0-32.0) mmol/L BUN 6 L (7.0-18.0) mg/dL Creatinine 0.7 L (0.8-1.3) mg/dL Est Cr Clr Drug Dosing 97.71 mL/min Estimated GFR (MDRD) > 60.0 ml/min Glucose 82 (74-106) mg/dL Hemoglobin A1c (4.5 - 6.2) % Lactic Acid (0.4-2.0) mmol/L Calcium 8.4 L (8.5-10.1) mg/dL Magnesium (1.8-2.4) mg/dL Total Bilirubin 0.7 (0.2-1.0) mg/dL AST 24 (15-37) IU/L ALT 26 (14-63) IU/L Alkaline Phosphatase 76 (46-116) U/L Total Protein 5.9 L (6.4-8.2) g/dL Albumin 3.1 L (3.4-5.0) g/dL Globulin 2.8 (2.6-4.0) g/dL Albumin/Globulin Ratio 1.1 (0.9-1.6) Triglycerides (0-200) mg/dL Cholesterol (50-200) mg/dL LDL Cholesterol, Calc (60-180) mg/dL VLDL Cholesterol (5-55) mg/dL HDL Cholesterol (40-60) mg/dL Cholesterol/HDL Ratio (3.3-6.0) TSH, Ultra Sensitive (0.36-3.74) uIU/mL Urine Color Urine Appearance Urine pH (5.0-8.0) Ur Specific [place] (1.001-1.035) Urine Protein (NEGATIVE) mg/dL Urine Glucose (UA) (NEGATIVE) mg/dL Urine Ketones (NEGATIVE) mg/dL Urine Occult Blood (NEGATIVE) Urine Nitrite (NEGATIVE) Urine Bilirubin (NEGATIVE) Urine Urobilinogen (<2.0) EU/dL Ur Leukocyte Esterase (NEGATIVE) Urine RBC (0-2/HPF) Urine WBC (0-5/HPF) Ur Epithelial Cells (NONE-FEW) Urine Bacteria (NEGATIVE) SARS-CoV-2 RNA (LISA) (NEGATIVE) 07/06/21 Range/Units 05:38 WBC (4.0-11.0) K/uL RBC (4.50-5.90) M/uL Hgb (13.0-17.0) g/dL Hct (38.0-50.0) % MCV (80.0-98.0) fL MCH (27.0-32.0) pg MCHC (31.0-37.0) g/dL RDW Std Deviation (28.0-62.0) fl RDW Coeff of Guillerimna (11.0-15.0) % Plt Count (150-400) K/uL MPV (7.40-12.00) fL Neut % (Auto) (48.0-80.0) % Lymph % (Auto) (16.0-40.0) % [place] % (Auto) (0.0-15.0) % Eos % (Auto) (0.0-7.0) % Baso % (Auto) (0.0-1.5) % Neut # (Auto) (1.4-5.7) K/uL Lymph # (Auto) (0.6-2.4) K/uL [place] # (Auto) (0.0-0.8) K/uL Eos # (Auto) (0.0-0.7) K/uL Baso # (Auto) (0.0-0.1) K/uL Nucleated RBC % /100WBC Nucleated RBCs # K/uL APTT (18.6-31.3) SEC Sodium (136-148) mmol/L Potassium (3.5-5.1) mmol/L Chloride (98-107) mmol/L Carbon Dioxide (21.0-32.0) mmol/L BUN (7.0-18.0) mg/dL Creatinine (0.8-1.3) mg/dL Est Cr Clr Drug Dosing mL/min Estimated GFR (MDRD) ml/min Glucose (74-106) mg/dL Hemoglobin A1c (4.5 - 6.2) % Lactic Acid (0.4-2.0) mmol/L Calcium (8.5-10.1) mg/dL Magnesium 1.9 (1.8-2.4) mg/dL Total Bilirubin (0.2-1.0) mg/dL AST (15-37) IU/L ALT (14-63) IU/L Alkaline Phosphatase (46-116) U/L Total Protein (6.4-8.2) g/dL Albumin (3.4-5.0) g/dL Globulin (2.6-4.0) g/dL Albumin/Globulin Ratio (0.9-1.6) Triglycerides (0-200) mg/dL Cholesterol (50-200) mg/dL LDL Cholesterol, Calc (60-180) mg/dL VLDL Cholesterol (5-55) mg/dL HDL Cholesterol (40-60) mg/dL Cholesterol/HDL Ratio (3.3-6.0) TSH, Ultra Sensitive (0.36-3.74) uIU/mL Urine Color Urine Appearance Urine pH (5.0-8.0) Ur Specific [place] (1.001-1.035) Urine Protein (NEGATIVE) mg/dL Urine Glucose (UA) (NEGATIVE) mg/dL Urine Ketones (NEGATIVE) mg/dL Urine Occult Blood (NEGATIVE) Urine Nitrite (NEGATIVE) Urine Bilirubin (NEGATIVE) Urine Urobilinogen (<2.0) EU/dL Ur Leukocyte Esterase (NEGATIVE) Urine RBC (0-2/HPF) Urine WBC (0-5/HPF) Ur Epithelial Cells (NONE-FEW) Urine Bacteria (NEGATIVE) SARS-CoV-2 RNA (LISA) (NEGATIVE) Earl Results Last 24 Hours: Microbiology 07/05/21 10:10 Aerobic Blood Culture - Preliminary Blood - Venous - Lab Draw NO GROWTH AFTER 1 DAY Anaerobic Blood Culture - Preliminary NO GROWTH AFTER 1 DAY 07/05/21 10:00 Aerobic Blood Culture - Preliminary Blood - Venous NO GROWTH AFTER 1 DAY Anaerobic Blood Culture - Preliminary NO GROWTH AFTER 1 DAY 07/05/21 23:35 C. difficile Antigen & Toxins A,B - Final Stool / Feces Med Orders - Current: Current Medications Acetaminophen (Acetaminophen 325 Mg Tab) 650 mg PO Q6H PRN PRN Reason: Pain Last Admin: 07/05/21 23:08 Dose: 650 mg Documented by: Albuterol/Ipratropium (Albuterol/Ipratropium 3.0-0.5 Mg/3 Ml Neb Soln) 3 ml NEB Q4HRRT PRN PRN Reason: Shortness of Breath Atorvastatin Calcium (Atorvastatin 40 Mg Tab) 80 mg PO BEDTIME MELISSA Cefepime HCl 2 gm/ Premix 50 mls @ 100 mls/hr IV Q12H MELISSA Last Admin: 07/06/21 09:01 Dose: 100 mls/hr Documented by: Pantoprazole Sodium 40 mg/ (Sodium Chloride) 10 mls @ 300 mls/hr IV BEDTIME MELISSA Last Admin: 07/05/21 22:38 Dose: 300 mls/hr Documented by: Heparin Sodium/Sodium Chloride (Heparin 25,000 Units In 1/2 Ns 500 Ml) 500 mls @ 26.127 mls/hr IV TITRATE MELISSA; Protocol Last Titration: 07/06/21 07:16 Dose: 24 units/kg/hr, 34.836 mls/hr Documented by: Morphine Sulfate (Morphine 2 Mg/Ml Syringe) 1 mg IVPUSH Q4H PRN PRN Reason: Pain Last Admin: 07/06/21 09:07 Dose: 1 mg Documented by: Sodium Chloride (Sodium Chloride 0.9% 10 Ml Syringe) 10 ml FLUSH ASDIRECTED PRN PRN Reason: Keep Vein Open Last Admin: 07/05/21 11:25 Dose: 10 ml Documented by: Sodium Chloride (Sodium Chloride 0.9% 2.5 Ml Syringe) 2.5 ml FLUSH ASDIRECTED PRN PRN Reason: Keep Vein Open Last Admin: 07/05/21 11:26 Dose: 2.5 ml Documented by: Vancomycin HCl (Vancomycin 125 Mg Cap) 125 mg PO QID MELISSA Last Admin: 07/06/21 06:03 Dose: 125 mg Documented by: Discontinued Medications Fentanyl (Fentanyl 50 Mcg/Ml Sdv) 25 mcg IVPUSH ONETIME ONE Stop: 07/05/21 15:08 Last Admin: 07/05/21 15:27 Dose: 25 mcg Documented by: Heparin Sodium (Porcine) (Heparin Sodium 5,000 Units/Ml Vial) 4,000 units IVPUSH ONETIME ONE Stop: 07/05/21 10:30 Last Admin: 07/05/21 11:34 Dose: Not Given Documented by: Heparin Sodium (Porcine) (Heparin Sodium 5,000 Units/Ml Vial) 5,000 units IVPUSH ONETIME ONE Stop: 07/05/21 11:26 Last Admin: 07/05/21 11:26 Dose: 5,000 units Documented by: Heparin Sodium (Porcine) (Heparin Sodium 5,000 Units/Ml Vial) 2,500 units IVPUSH .BOLUS ONE Stop: 07/06/21 00:32 Last Admin: 07/06/21 01:09 Dose: 2,500 units Documented by: Heparin Sodium (Porcine) (Heparin Sodium 5,000 Units/Ml Vial) 1,450 units IVPUSH .BOLUS ONE Stop: 07/06/21 06:35 Last Admin: 07/06/21 07:11 Dose: 1,450 units Documented by: Heparin Sodium/Sodium Chloride (Heparin 25,000 Units In 1/2 Ns 500 Ml) 500 mls @ 26.127 mls/hr IV TITRATE [facility]; Protocol Last Titration: 07/05/21 18:51 Dose: 0 units/kg/hr, 0 mls/hr Documented by: Cefepime HCl 2 gm/ Premix 50 mls @ 100 mls/hr IV ONETIME ONE Stop: 07/05/21 12:35 Last Admin: 07/05/21 16:08 Dose: 100 mls/hr Documented by: Vancomycin HCl 1.5 gm/ Premix 300 mls @ 200 mls/hr IV ONETIME ONE Stop: 07/05/21 13:35 Last Admin: 07/05/21 13:49 Dose: 200 mls/hr Documented by: Lactated Ringer's (Ringers, Lactated) 1,000 mls @ 999 mls/hr IV .BOLUS ONE Stop: 07/05/21 13:11 Last Admin: 07/05/21 15:56 Dose: 999 mls/hr Documented by: Cefepime HCl 2 gm/ Premix 50 mls @ 100 mls/hr IV Q12H MELISSA Iopamidol (Iopamidol 755 Mg/Ml 500 Ml Multipack Bottle) 120 ml IVPUSH ONETIME STA Stop: 07/05/21 12:14 Last Admin: 07/05/21 12:13 Dose: 120 ml Documented by: Potassium Chloride (Potassium Chloride 20 Meq Tab.Er) 40 meq PO ONETIME ONE Stop: 07/06/21 08:12 Last Admin: 07/06/21 08:59 Dose: 40 meq Documented by: - Exam General: Alert, Oriented Lungs: Clear to Auscultation, Normal Respiratory Effort Cardiovascular: Regular Rate, Regular Rhythm GI/Abdominal Exam: Soft, Non-Tender Extremities: No Pedal Edema, Other (Continued bluish-purple discoloration of the right great toe and second toe. Discoloration noted on the left great toe. Moderate pain with light touch of right great toe. Erythema noted at anterior right dover around old wound) - Patient Data Lab Results Last 24 hrs: Laboratory Results - last 24 hr 07/05/21 07/05/21 07/05/21 Range/Units 09:14 09:16 09:16 WBC (4.0-11.0) K/uL RBC (4.50-5.90) M/uL Hgb (13.0-17.0) g/dL Hct (38.0-50.0) % MCV (80.0-98.0) fL MCH (27.0-32.0) pg MCHC (31.0-37.0) g/dL RDW Std Deviation (28.0-62.0) fl RDW Coeff of Guillermina (11.0-15.0) % Plt Count (150-400) K/uL MPV (7.40-12.00) fL Neut % (Auto) (48.0-80.0) % Lymph % (Auto) (16.0-40.0) % [place] % (Auto) (0.0-15.0) % Eos % (Auto) (0.0-7.0) % Baso % (Auto) (0.0-1.5) % Neut # (Auto) (1.4-5.7) K/uL Lymph # (Auto) (0.6-2.4) K/uL [place] # (Auto) (0.0-0.8) K/uL Eos # (Auto) (0.0-0.7) K/uL Baso # (Auto) (0.0-0.1) K/uL Nucleated RBC % /100WBC Nucleated RBCs # K/uL APTT 32.5 H (18.6-31.3) SEC Sodium (136-148) mmol/L Potassium (3.5-5.1) mmol/L Chloride (98-107) mmol/L Carbon Dioxide (21.0-32.0) mmol/L BUN (7.0-18.0) mg/dL Creatinine (0.8-1.3) mg/dL Est Cr Clr Drug Dosing mL/min Estimated GFR (MDRD) ml/min Glucose (74-106) mg/dL Hemoglobin A1c 6.3 H (4.5 - 6.2) % Lactic Acid (0.4-2.0) mmol/L Calcium (8.5-10.1) mg/dL Magnesium (1.8-2.4) mg/dL Total Bilirubin (0.2-1.0) mg/dL AST (15-37) IU/L ALT (14-63) IU/L Alkaline Phosphatase (46-116) U/L Total Protein (6.4-8.2) g/dL Albumin (3.4-5.0) g/dL Globulin (2.6-4.0) g/dL Albumin/Globulin Ratio (0.9-1.6) Triglycerides 215 H (0-200) mg/dL Cholesterol 163 (50-200) mg/dL LDL Cholesterol, Calc 88 (60-180) mg/dL VLDL Cholesterol 43 (5-55) mg/dL HDL Cholesterol 32 L (40-60) mg/dL Cholesterol/HDL Ratio 5.1 (3.3-6.0) TSH, Ultra Sensitive 1.75 (0.36-3.74) uIU/mL Urine Color Urine Appearance Urine pH (5.0-8.0) Ur Specific [place] (1.001-1.035) Urine Protein (NEGATIVE) mg/dL Urine Glucose (UA) (NEGATIVE) mg/dL Urine Ketones (NEGATIVE) mg/dL Urine Occult Blood (NEGATIVE) Urine Nitrite (NEGATIVE) Urine Bilirubin (NEGATIVE) Urine Urobilinogen (<2.0) EU/dL Ur Leukocyte Esterase (NEGATIVE) Urine RBC (0-2/HPF) Urine WBC (0-5/HPF) Ur Epithelial Cells (NONE-FEW) Urine Bacteria (NEGATIVE) SARS-CoV-2 RNA (LISA) (NEGATIVE) 07/05/21 07/05/21 07/05/21 Range/Units 10:10 13:00 15:05 WBC (4.0-11.0) K/uL RBC (4.50-5.90) M/uL Hgb (13.0-17.0) g/dL Hct (38.0-50.0) % MCV (80.0-98.0) fL MCH (27.0-32.0) pg MCHC (31.0-37.0) g/dL RDW Std Deviation (28.0-62.0) fl RDW Coeff of Guillermina (11.0-15.0) % Plt Count (150-400) K/uL MPV (7.40-12.00) fL Neut % (Auto) (48.0-80.0) % Lymph % (Auto) (16.0-40.0) % [place] % (Auto) (0.0-15.0) % Eos % (Auto) (0.0-7.0) % Baso % (Auto) (0.0-1.5) % Neut # (Auto) (1.4-5.7) K/uL Lymph # (Auto) (0.6-2.4) K/uL [place] # (Auto) (0.0-0.8) K/uL Eos # (Auto) (0.0-0.7) K/uL Baso # (Auto) (0.0-0.1) K/uL Nucleated RBC % /100WBC Nucleated RBCs # K/uL APTT (18.6-31.3) SEC Sodium (136-148) mmol/L Potassium (3.5-5.1) mmol/L Chloride (98-107) mmol/L Carbon Dioxide (21.0-32.0) mmol/L BUN (7.0-18.0) mg/dL Creatinine (0.8-1.3) mg/dL Est Cr Clr Drug Dosing mL/min Estimated GFR (MDRD) ml/min Glucose (74-106) mg/dL Hemoglobin A1c (4.5 - 6.2) % Lactic Acid 2.9 H* 1.4 (0.4-2.0) mmol/L Calcium (8.5-10.1) mg/dL Magnesium (1.8-2.4) mg/dL Total Bilirubin (0.2-1.0) mg/dL AST (15-37) IU/L ALT (14-63) IU/L Alkaline Phosphatase (46-116) U/L Total Protein (6.4-8.2) g/dL Albumin (3.4-5.0) g/dL Globulin (2.6-4.0) g/dL Albumin/Globulin Ratio (0.9-1.6) Triglycerides (0-200) mg/dL Cholesterol (50-200) mg/dL LDL Cholesterol, Calc (60-180) mg/dL VLDL Cholesterol (5-55) mg/dL HDL Cholesterol (40-60) mg/dL Cholesterol/HDL Ratio (3.3-6.0) TSH, Ultra Sensitive (0.36-3.74) uIU/mL Urine Color YELLOW Urine Appearance CLEAR Urine pH 6.5 (5.0-8.0) Ur Specific [place] <= 1.005 (1.001-1.035) Urine Protein NEGATIVE (NEGATIVE) mg/dL Urine Glucose (UA) NEGATIVE (NEGATIVE) mg/dL Urine Ketones NEGATIVE (NEGATIVE) mg/dL Urine Occult Blood NEGATIVE (NEGATIVE) Urine Nitrite NEGATIVE (NEGATIVE) Urine Bilirubin NEGATIVE (NEGATIVE) Urine Urobilinogen 0.2 (<2.0) EU/dL Ur Leukocyte Esterase NEGATIVE (NEGATIVE) Urine RBC 0-1 (0-2/HPF) Urine WBC 0-1 (0-5/HPF) Ur Epithelial Cells RARE (NONE-FEW) Urine Bacteria RARE (NEGATIVE) SARS-CoV-2 RNA (LISA) (NEGATIVE) 07/05/21 07/05/21 07/05/21 Range/Units 17:47 19:10 23:39 WBC (4.0-11.0) K/uL RBC (4.50-5.90) M/uL Hgb (13.0-17.0) g/dL Hct (38.0-50.0) % MCV (80.0-98.0) fL MCH (27.0-32.0) pg MCHC (31.0-37.0) g/dL RDW Std Deviation (28.0-62.0) fl RDW Coeff of Guillermina (11.0-15.0) % Plt Count (150-400) K/uL MPV (7.40-12.00) fL Neut % (Auto) (48.0-80.0) % Lymph % (Auto) (16.0-40.0) % [place] % (Auto) (0.0-15.0) % Eos % (Auto) (0.0-7.0) % Baso % (Auto) (0.0-1.5) % Neut # (Auto) (1.4-5.7) K/uL Lymph # (Auto) (0.6-2.4) K/uL [place] # (Auto) (0.0-0.8) K/uL Eos # (Auto) (0.0-0.7) K/uL Baso # (Auto) (0.0-0.1) K/uL Nucleated RBC % /100WBC Nucleated RBCs # K/uL APTT 111.5 H 30.7 (18.6-31.3) SEC Sodium (136-148) mmol/L Potassium (3.5-5.1) mmol/L Chloride (98-107) mmol/L Carbon Dioxide (21.0-32.0) mmol/L BUN (7.0-18.0) mg/dL Creatinine (0.8-1.3) mg/dL Est Cr Clr Drug Dosing mL/min Estimated GFR (MDRD) ml/min Glucose (74-106) mg/dL Hemoglobin A1c (4.5 - 6.2) % Lactic Acid (0.4-2.0) mmol/L Calcium (8.5-10.1) mg/dL Magnesium (1.8-2.4) mg/dL Total Bilirubin (0.2-1.0) mg/dL AST (15-37) IU/L ALT (14-63) IU/L Alkaline Phosphatase (46-116) U/L Total Protein (6.4-8.2) g/dL Albumin (3.4-5.0) g/dL Globulin (2.6-4.0) g/dL Albumin/Globulin Ratio (0.9-1.6) Triglycerides (0-200) mg/dL Cholesterol (50-200) mg/dL LDL Cholesterol, Calc (60-180) mg/dL VLDL Cholesterol (5-55) mg/dL HDL Cholesterol (40-60) mg/dL Cholesterol/HDL Ratio (3.3-6.0) TSH, Ultra Sensitive (0.36-3.74) uIU/mL Urine Color Urine Appearance Urine pH (5.0-8.0) Ur Specific [place] (1.001-1.035) Urine Protein (NEGATIVE) mg/dL Urine Glucose (UA) (NEGATIVE) mg/dL Urine Ketones (NEGATIVE) mg/dL Urine Occult Blood (NEGATIVE) Urine Nitrite (NEGATIVE) Urine Bilirubin (NEGATIVE) Urine Urobilinogen (<2.0) EU/dL Ur Leukocyte Esterase (NEGATIVE) Urine RBC (0-2/HPF) Urine WBC (0-5/HPF) Ur Epithelial Cells (NONE-FEW) Urine Bacteria (NEGATIVE) SARS-CoV-2 RNA (LISA) NEGATIVE (NEGATIVE) 07/06/21 07/06/21 07/06/21 Range/Units 05:38 05:38 05:38 WBC 6.82 (4.0-11.0) K/uL RBC 5.04 (4.50-5.90) M/uL Hgb 16.9 (13.0-17.0) g/dL Hct 48.3 (38.0-50.0) % MCV 95.8 (80.0-98.0) fL MCH 33.5 H (27.0-32.0) pg MCHC 35.0 (31.0-37.0) g/dL RDW Std Deviation 53.2 (28.0-62.0) fl RDW Coeff of Guillermina 15 (11.0-15.0) % Plt Count 167 (150-400) K/uL MPV 11.70 (7.40-12.00) fL Neut % (Auto) 54.8 (48.0-80.0) % Lymph % (Auto) 32.1 (16.0-40.0) % [place] % (Auto) 10.7 (0.0-15.0) % Eos % (Auto) 2.1 (0.0-7.0) % Baso % (Auto) 0.3 (0.0-1.5) % Neut # (Auto) 3.7 (1.4-5.7) K/uL Lymph # (Auto) 2.2 (0.6-2.4) K/uL [place] # (Auto) 0.7 (0.0-0.8) K/uL Eos # (Auto) 0.1 (0.0-0.7) K/uL Baso # (Auto) 0.0 (0.0-0.1) K/uL Nucleated RBC % 0.0 /100WBC Nucleated RBCs # 0 K/uL APTT 46.6 H (18.6-31.3) SEC Sodium 140 (136-148) mmol/L Potassium 3.4 L (3.5-5.1) mmol/L Chloride 104 (98-107) mmol/L Carbon Dioxide 25.5 (21.0-32.0) mmol/L BUN 6 L (7.0-18.0) mg/dL Creatinine 0.7 L (0.8-1.3) mg/dL Est Cr Clr Drug Dosing 97.71 mL/min Estimated GFR (MDRD) > 60.0 ml/min Glucose 82 (74-106) mg/dL Hemoglobin A1c (4.5 - 6.2) % Lactic Acid (0.4-2.0) mmol/L Calcium 8.4 L (8.5-10.1) mg/dL Magnesium (1.8-2.4) mg/dL Total Bilirubin 0.7 (0.2-1.0) mg/dL AST 24 (15-37) IU/L ALT 26 (14-63) IU/L Alkaline Phosphatase 76 (46-116) U/L Total Protein 5.9 L (6.4-8.2) g/dL Albumin 3.1 L (3.4-5.0) g/dL Globulin 2.8 (2.6-4.0) g/dL Albumin/Globulin Ratio 1.1 (0.9-1.6) Triglycerides (0-200) mg/dL Cholesterol (50-200) mg/dL LDL Cholesterol, Calc (60-180) mg/dL VLDL Cholesterol (5-55) mg/dL HDL Cholesterol (40-60) mg/dL Cholesterol/HDL Ratio (3.3-6.0) TSH, Ultra Sensitive (0.36-3.74) uIU/mL Urine Color Urine Appearance Urine pH (5.0-8.0) Ur Specific [place] (1.001-1.035) Urine Protein (NEGATIVE) mg/dL Urine Glucose (UA) (NEGATIVE) mg/dL Urine Ketones (NEGATIVE) mg/dL Urine Occult Blood (NEGATIVE) Urine Nitrite (NEGATIVE) Urine Bilirubin (NEGATIVE) Urine Urobilinogen (<2.0) EU/dL Ur Leukocyte Esterase (NEGATIVE) Urine RBC (0-2/HPF) Urine WBC (0-5/HPF) Ur Epithelial Cells (NONE-FEW) Urine Bacteria (NEGATIVE) SARS-CoV-2 RNA (LISA) (NEGATIVE) 07/06/21 Range/Units 05:38 WBC (4.0-11.0) K/uL RBC (4.50-5.90) M/uL Hgb (13.0-17.0) g/dL Hct (38.0-50.0) % MCV (80.0-98.0) fL MCH (27.0-32.0) pg MCHC (31.0-37.0) g/dL RDW Std Deviation (28.0-62.0) fl RDW Coeff of Guillermina (11.0-15.0) % Plt Count (150-400) K/uL MPV (7.40-12.00) fL Neut % (Auto) (48.0-80.0) % Lymph % (Auto) (16.0-40.0) % [place] % (Auto) (0.0-15.0) % Eos % (Auto) (0.0-7.0) % Baso % (Auto) (0.0-1.5) % Neut # (Auto) (1.4-5.7) K/uL Lymph # (Auto) (0.6-2.4) K/uL [place] # (Auto) (0.0-0.8) K/uL Eos # (Auto) (0.0-0.7) K/uL Baso # (Auto) (0.0-0.1) K/uL Nucleated RBC % /100WBC Nucleated RBCs # K/uL APTT (18.6-31.3) SEC Sodium (136-148) mmol/L Potassium (3.5-5.1) mmol/L Chloride (98-107) mmol/L Carbon Dioxide (21.0-32.0) mmol/L BUN (7.0-18.0) mg/dL Creatinine (0.8-1.3) mg/dL Est Cr Clr Drug Dosing mL/min Estimated GFR (MDRD) ml/min Glucose (74-106) mg/dL Hemoglobin A1c (4.5 - 6.2) % Lactic Acid (0.4-2.0) mmol/L Calcium (8.5-10.1) mg/dL Magnesium 1.9 (1.8-2.4) mg/dL Total Bilirubin (0.2-1.0) mg/dL AST (15-37) IU/L ALT (14-63) IU/L Alkaline Phosphatase (46-116) U/L Total Protein (6.4-8.2) g/dL Albumin (3.4-5.0) g/dL Globulin (2.6-4.0) g/dL Albumin/Globulin Ratio (0.9-1.6) Triglycerides (0-200) mg/dL Cholesterol (50-200) mg/dL LDL Cholesterol, Calc (60-180) mg/dL VLDL Cholesterol (5-55) mg/dL HDL Cholesterol (40-60) mg/dL Cholesterol/HDL Ratio (3.3-6.0) TSH, Ultra Sensitive (0.36-3.74) uIU/mL Urine Color Urine Appearance Urine pH (5.0-8.0) Ur Specific [place] (1.001-1.035) Urine Protein (NEGATIVE) mg/dL Urine Glucose (UA) (NEGATIVE) mg/dL Urine Ketones (NEGATIVE) mg/dL Urine Occult Blood (NEGATIVE) Urine Nitrite (NEGATIVE) Urine Bilirubin (NEGATIVE) Urine Urobilinogen (<2.0) EU/dL Ur Leukocyte Esterase (NEGATIVE) Urine RBC (0-2/HPF) Urine WBC (0-5/HPF) Ur Epithelial Cells (NONE-FEW) Urine Bacteria (NEGATIVE) SARS-CoV-2 RNA (LISA) (NEGATIVE) Result Diagrams: 07/06/21 05:38 07/06/21 05:38 Earl Results Last 24 hrs: Microbiology 07/05/21 10:10 Aerobic Blood Culture - Preliminary Blood - Venous - Lab Draw NO GROWTH AFTER 1 DAY Anaerobic Blood Culture - Preliminary NO GROWTH AFTER 1 DAY 07/05/21 10:00 Aerobic Blood Culture - Preliminary Blood - Venous NO GROWTH AFTER 1 DAY Anaerobic Blood Culture - Preliminary NO GROWTH AFTER 1 DAY 07/05/21 23:35 C. difficile Antigen & Toxins A,B - Final Stool / Feces Sepsis Event Note - Evaluation Sepsis Screening Result: No Definite Risk - Focused Exam Vital Signs: Vital Signs Temp Pulse Resp BP Pulse Ox 07/06/21 08:00 97.5 F 58 L 20 127/64 98 07/06/21 02:44 97.7 F 60 17 135/63 96 - Problem List & Annotations (1) Hypercholesteremia SNOMED Code(s): 40354805 Code(s): E78.00 - PURE HYPERCHOLESTEROLEMIA, UNSPECIFIED Status: Acute Current Visit: Yes (2) COPD (chronic obstructive pulmonary disease) SNOMED Code(s): 04459540 Code(s): J44.9 - CHRONIC OBSTRUCTIVE PULMONARY DISEASE, UNSPECIFIED Status: Acute Current Visit: Yes (3) GERD (gastroesophageal reflux disease) SNOMED Code(s): 639885379 Code(s): K21.9 - GASTRO-ESOPHAGEAL REFLUX DISEASE WITHOUT ESOPHAGITIS Status: Acute Current Visit: Yes (4) PVD (peripheral vascular disease) with claudication SNOMED Code(s): 324496618, 809558344 Code(s): I73.9 - PERIPHERAL VASCULAR DISEASE, UNSPECIFIED Status: Acute Current Visit: Yes (5) Atherosclerosis of arteries of extremities SNOMED Code(s): 74763918 Code(s): I70.209 - UNSP ATHSCL [place] ARTERIES OF EXTREMITIES, UNSP EXTREMITY Status: Acute Current Visit: Yes - Problem List Review Problem List Initiated/Reviewed/Updated: Yes - My Orders Last 24 Hours: My Active Orders 07/05/21 Dinner Regular Diet [DIET] 07/05/21 18:54 Neurovascular Check [RC] Q6H 07/05/21 20:28 Albuterol/Ipratropium [DuoNeb 3.0-0.5 MG/3 ML] 3 ml NEB Q4HRRT PRN 07/05/21 20:29 RT Aerosol Therapy [RC] ASDIRECTED 07/05/21 20:30 Acetaminophen [TylenoL] 650 mg PO Q6H PRN 07/05/21 20:41 Oxygen Therapy [RC] PRN VTE/DVT Education [RC] PER UNIT ROUTINE Vital Signs [RC] Q4H 07/05/21 20:42 Telemetry Monitoring [Cardiac Monitoring] [RC] Q8H 07/05/21 21:00 Pantoprazole [ProTONIX IV] 40 mg Sodium Chloride 0.9% [Normal Saline] 10 ml IV BEDTIME 07/05/21 21:42 Code Status [Resuscitation Status] Routine 07/05/21 21:45 Heparin Sodium/0.45% NaCl [Heparin 25,000 Units in 1/2 NS 500 ML] 500 ml IV TITRATE 07/05/21 23:35 C DIFICILE TOXIN BY PCR CONF [MREF] Routine STOOL CULTURE/SHIGA TOXIN [MREF] Routine 07/06/21 09:00 Cefepime [Maxipime in D5W 2 GM/50 ML] 2 gm Premix Bag 1 bag IV Q12H 07/06/21 18:52 Echo Comp wo Cont [US] Stat 07/06/21 21:00 atorvaSTATin [Lipitor] 80 mg PO BEDTIME - Plan Plan:: PAD disease of Right and Left lower extremities with claudication- Heparin drip D/C, started Xarelto 10mg daily, asprin 81mg daily C.Diff- Vancomycin 125mg PO DID Tylenol, Regular diet, IV fluids if needed, Duonebs prn, Protonix 40mg, Atorvastatin 80mg daily. Spoke with Dr. Tobin at [facility] who is a colleague of Dr. Fan, and reviewed imaging with him yesterday. Dr. Tobin states that patient may be transitioned to oral anticoagulant such as Xarelto or Eliquis, and did not need continuous heparin treatment. Did not recommend using both Plavix with an anticoagulant agent. Patient to follow-up with Dr. Fan next week.
[2021-07-06] MEDS: Rivaroxaban 10 MG Tab PO SCH (14:00)
[2021-07-06] MEDS ORDERED: Rivaroxaban 10 MG Tab PO SCH (17:30)
[2021-07-06] MEDS: Aspirin 81 MG Tab.Chew PO SCH (20:59)
[2021-07-06] MEDS: Pantoprazole 40 MG in Sodium Chloride 0.9% 10 ML IV SCH (20:59)
[2021-07-07] MEDS: Vancomycin 125 MG Cap PO SCH ×2 (05:28→11:58)
[2021-07-07 08:26] LABS: BLOOD UREA NITROGEN,BUN 6 mg/dL (7.0-18.0); CARBON DIOXIDE,CO2 27.9 mmol/L (21.0-32.0); CHLORIDE,CL 103 mmol/L (98-107); GLUCOSE RANDOM 87 mg/dL (74-106); SODIUM,NA 138 mmol/L (136-148)
[2021-07-07] MEDS: Aspirin 81 MG Tab.Chew PO SCH (09:07)
[2021-07-07] MEDS: Rivaroxaban 10 MG Tab PO SCH (09:07)
[2021-07-07] MEDS: Cefepime 2 GM in Premix Bag 1 BAG IV SCH (09:08)
[2021-07-07] MEDS: Morphine 2 MG/ML SYRINGE IVPUSH PRN (10:22)
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
[2021-07-07] MEDS ORDERED: Aspirin 81 MG Tab.Chew PO SCH (21:00)
--- NOTE | 2021-07-09 15:56 | ECHO ---
EXAM DATE: 07/05/21 PATIENT'S AGE: 66 The ECHO report has been scanned into [employer] and can be seen in this patient's EMR (Electronic Medical Record) under the REPORTS section. The report has also been scanned into PACS. LAQUITA
== END 2021-07-07 15:30 | disposition home or self-care (01) | DRG 300 ==
LOC: MW.ED 08:54 → MW.MS 18:48
PROVIDERS: ADMIT Student in an Organized Health Care Education/Training Program; ATTEND Student in an Organized Health Care Education/Training Program
DX: I70.213 Atherosclerosis of native arteries of extremities with intermittent claudication, bilateral legs (principal); I74.10 Embolism and thrombosis of unspecified parts of aorta; A04.72 Enterocolitis due to Clostridium difficile, not specified as recurrent; E78.00 Pure hypercholesterolemia, unspecified; J44.9 Chronic obstructive pulmonary disease, unspecified; K21.9 Gastro-esophageal reflux disease without esophagitis; Z20.822 Contact with and (suspected) exposure to COVID-19; F17.210 Nicotine dependence, cigarettes, uncomplicated; Z88.0 Allergy status to penicillin; Z88.8 Allergy status to other drugs, medicaments and biological substances; Z79.899 Other long term (current) drug therapy; Z88.6 Allergy status to analgesic agent; Z95.820 Peripheral vascular angioplasty status with implants and grafts
CPT/HCPCS: 36415; 71045; 73590; 73620; 75635; 80053; 80061; 81001; 83036; 83605 ×2; 84443; 85025; 85610; 85730 ×2; 86140; 87040 ×2; 93005; J0692; J1644 ×2; J3010; J3370; J7120; Q9967; 80048; 83735; 87045; 87046; 87324; 87449; 87493; 87899; 93010; 93306; 99284; A9270-GY; C9113; J2270; U0002

== ENCOUNTER 2021-11-30 06:27 | Day surgery (SDC) | payer MEDICARE, BC ==
[2021-11-30] MEDS ORDERED: Lactated Ringers 1,000 ML IV SCH ×2 (07:15→10:15)
[2021-11-30] MEDS ORDERED: Propofol 200 MG/20 ML SDV ONE ×5 (07:42→09:34)
[2021-11-30] MEDS ORDERED: fentaNYL 100 MCG/2 ML SDV ONE (07:42)
[2021-11-30] MEDS ORDERED: cefOXitin 1 GM Vial ONE (07:56)
[2021-12-01] MEDS ORDERED: Lactated Ringers 1,000 ML IV SCH (06:30)
== END 2021-11-30 10:50 | disposition home or self-care (01) ==
LOC: MW.SDS 06:27
PROVIDERS: ATTEND Surgery
DX: Z12.11 Encounter for screening for malignant neoplasm of colon (principal); D12.3 Benign neoplasm of transverse colon; D12.0 Benign neoplasm of cecum; D12.4 Benign neoplasm of descending colon; D12.5 Benign neoplasm of sigmoid colon; K62.1 Rectal polyp; K57.30 Diverticulosis of large intestine without perforation or abscess without bleeding; J44.9 Chronic obstructive pulmonary disease, unspecified; K21.9 Gastro-esophageal reflux disease without esophagitis; E78.00 Pure hypercholesterolemia, unspecified; I73.9 Peripheral vascular disease, unspecified; F17.210 Nicotine dependence, cigarettes, uncomplicated; Z88.0 Allergy status to penicillin; Z88.8 Allergy status to other drugs, medicaments and biological substances; Z79.899 Other long term (current) drug therapy; Z98.890 Other specified postprocedural states; Z79.02 Long term (current) use of antithrombotics/antiplatelets
CPT/HCPCS: 45385; J0694; J2704; J3010; J7120; 00812

== ENCOUNTER 2022-08-26 17:55 | Emergency (ER) | payer MEDICARE, BC | END 2022-08-26 20:45 | disposition home or self-care (01) | LOC: MW.ED 17:55 | DX: K59.00 Constipation, unspecified (principal); E11.9 Type 2 diabetes mellitus without complications; F17.200 Nicotine dependence, unspecified, uncomplicated; Z88.8 Allergy status to other drugs, medicaments and biological substances; Z88.0 Allergy status to penicillin | CPT/HCPCS: 74018; 74018-26; 93010; 99282; 99283 ==

== ENCOUNTER 2022-10-23 10:44 | Emergency (ER) | payer MEDICARE, BC ==
[2022-10-23] MEDS ORDERED: Sodium Chloride 0.9% 10 ML Syringe FLUSH PRN (10:50)
[2022-10-23] MEDS ORDERED: Sodium Chloride 0.9% 2.5 ML Syringe FLUSH PRN (10:50)
[2022-10-23 11:42] LABS: CARBON DIOXIDE,CO2 32.4 mmol/L (21.0-32.0); POTASSIUM,K 3.4 mmol/L (3.5-5.1)
[2022-10-23] MEDS ORDERED: Ondansetron 4 MG/2 ML SDV IVPUSH ONE (11:43)
[2022-10-23] MEDS ORDERED: Morphine 4 MG/ML Syringe IVPUSH STA (11:43)
[2022-10-23] MEDS ORDERED: Sodium Chloride 0.9% 1,000 ML IV SCH (11:45)
[2022-10-23 12:24] LABS: CORONAVIRUS COVID-19 NAA NEGATIVE (NEGATIVE); INFLUENZA A NAA NEGATIVE (NEGATIVE); INFLUENZA B NAA NEGATIVE (NEGATIVE)
[2022-10-23] MEDS ORDERED: Iopamidol 755 MG/ML 500 ML Multipack Bottle IVPUSH ONE (12:54)
== END 2022-10-23 14:33 | disposition home or self-care (01) ==
LOC: MW.ED 10:44
DX: R07.89 Other chest pain (principal); E78.00 Pure hypercholesterolemia, unspecified; J44.9 Chronic obstructive pulmonary disease, unspecified; Z88.5 Allergy status to narcotic agent; Z88.0 Allergy status to penicillin; Z79.02 Long term (current) use of antithrombotics/antiplatelets; Z79.899 Other long term (current) drug therapy; Z20.822 Contact with and (suspected) exposure to COVID-19
CPT/HCPCS: 0240U; 36415; 71045; 71275; 80053; 84484; 85025; 93005; 96361; 96374; 96375; 99285; J2270; J2405; J3490; J7030; Q9967

== ENCOUNTER 2022-11-20 13:48 | Emergency (ER) | payer MEDICARE, BC ==
[2022-11-20] MEDS ORDERED: Sodium Chloride 0.9% 10 ML Syringe FLUSH PRN (18:49)
[2022-11-20] MEDS ORDERED: Sodium Chloride 0.9% 2.5 ML Syringe FLUSH PRN (18:49)
[2022-11-20 19:44] LABS: CARBON DIOXIDE,CO2 28.1 mmol/L (21.0-32.0); POTASSIUM,K 3.4 mmol/L (3.5-5.1)
[2022-11-20] MEDS ORDERED: Iopamidol 755 MG/ML 500 ML Multipack Bottle IVPUSH STA (20:40)
[2022-11-20] MEDS ORDERED: Aspirin 81 MG Tab.Chew PO ONE (23:59)
== END 2022-11-21 00:30 | disposition home or self-care (01) ==
LOC: MW.ED 13:48
DX: I70.203 Unspecified atherosclerosis of native arteries of extremities, bilateral legs (principal); J44.9 Chronic obstructive pulmonary disease, unspecified; E78.00 Pure hypercholesterolemia, unspecified; Z88.0 Allergy status to penicillin; Z88.8 Allergy status to other drugs, medicaments and biological substances; Z79.899 Other long term (current) drug therapy; Z72.0 Tobacco use
CPT/HCPCS: 36415; 71275; 75635; 80053; 82550; 83735; 84484; 85025; 85610; 85730; 93005; 93798; 99284; Q9967

== ENCOUNTER 2023-01-03 08:08 | Day surgery (SDC) | payer MEDICARE, BC ==
[~2023-01-03 08:08] MED LIST: Lactated Ringers 1,000 ML IV SCH; cefOXitin 1 GM in Premix Bag 1 BAG IV SCH
[2023-01-03] MEDS ORDERED: fentaNYL 100 MCG/2 ML SDV ONE (08:48)
[2023-01-03] MEDS ORDERED: Lidocaine 2% 5 ML SDV ONE (08:48)
[2023-01-03] MEDS ORDERED: Propofol 200 MG/20 ML SDV ONE (08:48)
[2023-01-03] MEDS ORDERED: cefOXitin 1 GM Vial ONE (08:52)
[2023-01-03] MEDS ORDERED: Lactated Ringers 1,000 ML IV SCH (09:45)
[2023-01-03] MEDS ORDERED: ePHEDrine 50 MG/ML SDV ONE (09:47)
== END 2023-01-03 11:00 | disposition home or self-care (01) ==
LOC: MW.SDS 08:08
PROVIDERS: ATTEND Surgery
DX: Z12.11 Encounter for screening for malignant neoplasm of colon (principal); D12.7 Benign neoplasm of rectosigmoid junction; D12.4 Benign neoplasm of descending colon; D12.3 Benign neoplasm of transverse colon; K57.30 Diverticulosis of large intestine without perforation or abscess without bleeding; J44.9 Chronic obstructive pulmonary disease, unspecified; E78.00 Pure hypercholesterolemia, unspecified; K21.9 Gastro-esophageal reflux disease without esophagitis; B35.1 Tinea unguium; D75.1 Secondary polycythemia; I73.9 Peripheral vascular disease, unspecified; I82.409 Acute embolism and thrombosis of unspecified deep veins of unspecified lower extremity; I25.10 Atherosclerotic heart disease of native coronary artery without angina pectoris; G62.9 Polyneuropathy, unspecified; F17.210 Nicotine dependence, cigarettes, uncomplicated; Z86.010 Personal history of colon polyps; Z79.899 Other long term (current) drug therapy; Z79.82 Long term (current) use of aspirin; Z98.890 Other specified postprocedural states; Z88.0 Allergy status to penicillin; Z88.6 Allergy status to analgesic agent; Z79.01 Long term (current) use of anticoagulants
CPT/HCPCS: 45385; J0694; J2704; J3010; J7120; 00812; J3490

== ENCOUNTER 2023-03-18 11:17 | Emergency (ER) | payer MEDICARE, BC ==
[2023-03-18] MEDS ORDERED: Sodium Chloride 0.9% 2.5 ML Syringe FLUSH PRN (11:33)
[2023-03-18] MEDS ORDERED: Sodium Chloride 0.9% 10 ML Syringe FLUSH PRN (11:33)
[2023-03-18 12:12] LABS: CARBON DIOXIDE,CO2 26.9 mmol/L (21.0-32.0); POTASSIUM,K 3.4 mmol/L (3.5-5.1)
[2023-03-18] MEDS ORDERED: Iopamidol 755 MG/ML 500 ML Multipack Bottle IVPUSH ONE (13:34)
[2023-03-18] MEDS ORDERED: Morphine 4 MG/ML Syringe IVPUSH PRN (13:49)
[2023-03-18] MEDS ORDERED: Alum Hydro/Mag Hydro/Simeth XS 15 ML, Lidocaine 2% 5 ML PO ONE ×2 (15:41)
== END 2023-03-18 17:50 | disposition home or self-care (01) ==
LOC: MW.ED 11:17
DX: R10.12 Left upper quadrant pain (principal); K21.9 Gastro-esophageal reflux disease without esophagitis; J44.9 Chronic obstructive pulmonary disease, unspecified; E78.00 Pure hypercholesterolemia, unspecified; Z88.0 Allergy status to penicillin; Z88.5 Allergy status to narcotic agent; Z79.899 Other long term (current) drug therapy
CPT/HCPCS: 36415; 71045; 74177; 80053; 81003; 84484; 85025; 85610; 93005; 96374; 99284; A9270; J2270; J3490; Q9967; 93010

== ENCOUNTER 2024-10-31 12:50 | Emergency (ER) | payer MEDICARE, BC ==
[2024-10-31] MEDS: Sodium Chloride 0.9% 10 ML Syringe FLUSH PRN (14:12)
[2024-10-31] MEDS: Sodium Chloride 0.9% 1,000 ML IV ONE (14:12)
[2024-10-31] MEDS: Sodium Chloride 0.9% 2.5 ML Syringe FLUSH PRN (14:13)
[2024-10-31 14:21] LABS: BASOPHILS ABSOLUTE AUTO 0.02 K/uL (0.00-0.20); BASOPHILS PERCENT AUTO 0.3 % (0.0-1.0); EOSINOPHILS ABSOLUTE AUTO 0.19 K/uL (0.00-0.45); HEMATOCRIT 46.1 % (42.0-52.0); HEMOGLOBIN 15.7 g/dL (14.0-18.0); IMMATURE GRAN ABSOLUTE AUTO 0.02 K/uL (0.00-0.05); IMMATURE GRAN PERCENT AUTO 0.3 % (0.0-0.4); LYMPHOCYTES ABSOLUTE AUTO 2.03 K/uL (1.00-4.80); LYMPHOCYTES PERCENT AUTO 31.5 % (24.0-44.0); MEAN CORPUSCULAR HEMOGLOBIN 28.1 pg (28.0-32.0); MEAN CORPUSCULAR HGB CONC 34.1 g/dL (32.0-36.0); MEAN CORPUSCULAR VOLUME 82.5 fL (83.0-99.0); MEAN PLATELET VOLUME 11.5 fL (9.4-12.4); MONOCYTES ABSOLUTE AUTO 0.62 K/uL (0.00-0.80); MONOCYTES PERCENT AUTO 9.6 % (0.0-8.0); NEUTROPHILS ABSOLUTE AUTO 3.56 K/uL (1.80-7.70); NEUTROPHILS PERCENT AUTO 55.3 % (41.0-71.0); PLATELET COUNT,PLT 219 K/uL (150-400); RED BLOOD CELL COUNT 5.59 M/uL (4.52-5.90); WHITE BLOOD CELL COUNT,WBC 6.44 K/uL (3.9-11.3)
[2024-10-31 14:51] LABS: ALBUMIN 3.5 g/dL (3.4-5.0); BILIRUBIN TOTAL 0.3 mg/dL (0.2-1.0); CALCIUM 9.3 mg/dL (8.5-10.1); CARBON DIOXIDE,CO2 24.8 mmol/L (21.0-32.0); CREATININE 0.7 mg/dL (0.8-1.3); EST CRCL DRUG DOSING (CG) 93.15 mL/min
[2024-10-31] MEDS: Potassium Chloride 20 MEQ Tab.ER PO ONE (16:04)
== END 2024-10-31 17:58 | disposition home or self-care (01) ==
LOC: MW.ED 12:50
DX: F10.129 Alcohol abuse with intoxication, unspecified (principal); J44.9 Chronic obstructive pulmonary disease, unspecified; K21.9 Gastro-esophageal reflux disease without esophagitis; Z79.82 Long term (current) use of aspirin; Z79.899 Other long term (current) drug therapy; Z79.84 Long term (current) use of oral hypoglycemic drugs; Z88.0 Allergy status to penicillin; Z88.8 Allergy status to other drugs, medicaments and biological substances; Z75.8 Other problems related to medical facilities and other health care; W19.XXXA Unspecified fall, initial encounter
CPT/HCPCS: 36415; 70450; 72125; 80053; 80307; 83735; 84484; 85025; 93005; 96360; 99284; A9270; J7030; J3490